=== PATIENT | male | born 1940 | race Caucasian/White ===

== ENCOUNTER 2017-08-01 11:26 | Outpatient (CLI) | payer MEDICARE ==
--- OUTSIDE RECORDS SUMMARY | 2017-08-01 11:28 | XMS | Clinical Summary ---
:1940 Author Organization [facility] Address [address] [place] [address] Phone Care Team Providers Name Role Phone , Primary Care Provider Unavailable Allergies Not on File Current Medications Not on file Active Problems Not on file Social History Tobacco Use Types Packs/Day Years Used Date Never Assessed Sex Assigned at Date Recorded Not on file Last Filed Vital Signs Not on file Plan of Treatment Not on file Results Not on filefrom Last 3 Months
[2017-08-01 12:23] LABS: #Eosinphils 0.1 thou/uL (0.0-0.7); #Lymphocytes 1.5 thou/uL (1.20-3.40); #Monocytes 0.6 thou/uL (0.11-0.59); #Neutrophils 4.9 thou/uL (1.40-6.50); %Basophils 0.6 % (0.0-1.0); %Lymphocytes 21.4 % (21.0-51.0); %Monocytes 8.5 % (0.0-10.0); Hematocrit 45.5 % (42.0-52.0); Mean Platelet Volume 8.2 fL (7.4-10.4); Red Blood Cell (RBC) Count 4.97 mill/uL (4.70-6.10); White Blood Cell (WBC) Count 7.1 thou/uL (4.8-10.8)
[2017-08-01 12:46] LABS: Anion Gap 13 mmol/L (10-20); BUN (Urea Nitrogen) 18 mg/dL (8.4-25.7); Calc. Creatinine Clearance 0 mL/min (70-130); Calcium 9.4 mg/dL (7.8-10.44); Carbon Dioxide 26 mmol/L (23-31); Chloride 105 mmol/L (98-107); Estimated GFR-MDRD 88
== END 2017-08-01 11:27 | disposition home or self-care (01) ==
LOC: LABBT 11:26
PROVIDERS: ATTEND Surgery
DX: Z01.812 Encounter for preprocedural laboratory examination (principal); K40.90 Unilateral inguinal hernia, without obstruction or gangrene, not specified as recurrent
CPT/HCPCS: 80048; 85025

== ENCOUNTER 2017-08-04 09:33 | Day surgery (SDC) | payer MEDICARE ==
[2017-08-01 11:44] VITALS: BMI 27.8
--- OUTSIDE RECORDS SUMMARY | 2017-08-04 09:36 | XMS | Clinical Summary ---
:1940 Author Organization [facility] Address [address] [place] [address] Phone Care Team Providers Name Role Phone [...]
[2017-08-04] MEDS ORDERED: Bupivacaine/Epinephrine 0.5% 10 ML VIAL ONE (11:12)
[2017-08-04] MEDS ORDERED: Bupivacaine PF 0.5% 30 ML VIAL ONE (11:12)
[2017-08-04] MEDS ORDERED: Midazolam HCl 2 mg/2 ml Vial ONE (11:20)
[2017-08-04] MEDS ORDERED: Fentanyl 100 MCG/2 ML VIAL ONE (11:20)
[2017-08-04] MEDS ORDERED: Lidocaine 2% Jelly 5 ML TUBE ONE (11:43)
[2017-08-04] MEDS ORDERED: Propofol 200 MG/20 ML VIAL ONE (11:52)
--- NOTE | 2017-08-04 15:47 | OP ---
DATE OF PROCEDURE: 08/04/2017 PREOPERATIVE DIAGNOSIS: Left inguinal hernia. POSTOPERATIVE DIAGNOSIS: Left inguinal hernia. PROCEDURES: Left inguinal hernia repair with mesh, PHS extended. SURGEON: Luis A Kelly M.D. ANESTHESIA: General. ESTIMATED BLOOD LOSS: Minimal. COMPLICATIONS: None. SPECIMEN: None. FINDINGS: Left inguinal hernia. TECHNIQUE: The patient was taken to the operating room and placed supine on the table. After gener al anesthetic was obtained, bilateral abdomen and groins were shaved, prepped and draped in a steril e fashion. Oblique incision made above the pubic tubercle in the left lower quadrant. Cautery diss ected down through Suhas's to expose the external oblique. External oblique fibers were opened patrica ng their course to the external ring. Contents of the inguinal canal were dissected away from the b ackside of the external oblique. Ilioinguinal nerve was found segmentally high removed to prevent p ostop pain. Cord structures were mobilized on the pubic tubercle using a [place] drain. Dissection superior medially on the cord showed there to be a small cord lipoma, but no indirect hernia sac. Cord lipoma was removed high. the transversalis fascia was entered over the direct defect in the fl oor of the inguinal canal, and then bluntly dissected using a wet unraveled Ray-Brenda. PHS extended b rought into the sterile field. The underlay was placed in the preperitoneal space and its fibers la id out flat against the posterior abdominal wall. The overlay was laid in the floor of the inguinal canal. The overlay is cut laterally to incorporate the internal ring. The overlay is sewn distall y to the pubic tubercle, medially to the transversalis arch, laterally to the shelving edge of ingui nal ligament. The two ends of cut mesh were reapproximated at the shelving edge of inguinal ligamen t to reform the internal ring. The extra mesh was tucked back under the external oblique proximally . The wound was irrigated. Local anesthetic was applied. Tunneled catheter for postop pain thread ed above the incision and left on top of the mesh. The wound was irrigated. No ongoing bleeding. 3-0 Vicryl was used to close the external oblique and Suhas's. Skin incision running 4-0 Monocryl and Dermabond. The patient went to recovery in stable condition. All instrument counts, needle cou nts, and lap counts were correct.
== END 2017-08-04 13:30 | disposition home or self-care (01) ==
LOC: SDC 09:33
PROVIDERS: ATTEND Surgery
PROC: 0YU60JZ Supplement Left Inguinal Region with Synthetic Substitute, Open Approach (ICD-10-PCS; principal; 2017-08-04)
DX: K40.90 Unilateral inguinal hernia, without obstruction or gangrene, not specified as recurrent (principal); D17.6 Benign lipomatous neoplasm of spermatic cord; I25.10 Atherosclerotic heart disease of native coronary artery without angina pectoris; E78.5 Hyperlipidemia, unspecified; K21.9 Gastro-esophageal reflux disease without esophagitis; J44.9 Chronic obstructive pulmonary disease, unspecified; G47.00 Insomnia, unspecified; N40.0 Benign prostatic hyperplasia without lower urinary tract symptoms; F17.200 Nicotine dependence, unspecified, uncomplicated; Z88.7 Allergy status to serum and vaccine; Z90.49 Acquired absence of other specified parts of digestive tract; Z98.890 Other specified postprocedural states; Z82.49 Family history of ischemic heart disease and other diseases of the circulatory system
CPT/HCPCS: 49505; A4306; C1781; J2250; J2704; J3010; J3490; S0020

== ENCOUNTER 2017-12-11 12:16 | Outpatient (CLI) | payer MEDICARE ==
--- NOTE | 2017-12-11 12:44 | RAD ---
PA AND LATERAL CHEST: History: Dyspnea. Comparison: 12-11-16 FINDINGS: Heart size within normal limits. There are arthrosclerotic changes of the aorta. Chronic apical pleur al and parenchymal changes are seen. No acute process. IMPRESSION: Stable chest. POS: [facility]
== END 2017-12-11 12:17 | disposition home or self-care (01) ==
LOC: RAD 12:16
PROVIDERS: ATTEND Internal Medicine Critical Care Medicine
DX: R06.00 Dyspnea, unspecified (principal)
CPT/HCPCS: 71046

== ENCOUNTER 2018-11-23 18:12 | Emergency (ER) | payer MEDICARE ==
[2018-11-23 18:40] LABS: Clarity Cloudy (Clear)
[2018-11-23 18:47] LABS: Bacteria/HPF 3+ HPF (None Seen); RBC/HPF 0-3 HPF (0-3); Squamous Epithelial 0-3 HPF (0-3); WBC/HPF 21-50 HPF (0-3)
== END 2018-11-23 19:15 | disposition home or self-care (01) ==
LOC: SCSER 18:12
DX: N30.90 Cystitis, unspecified without hematuria (principal); F17.210 Nicotine dependence, cigarettes, uncomplicated; I49.9 Cardiac arrhythmia, unspecified; I10 Essential (primary) hypertension
CPT/HCPCS: 81003; 81015; 87077; 87086; 87186; 99283

== ENCOUNTER 2020-05-02 20:30 | Observation (INO) | payer MEDICARE ==
[2020-05-02] MEDS ORDERED: Morphine 4 MG/ML VIAL ONE ×2 (21:31→22:31)
[2020-05-02] MEDS ORDERED: Ketorolac Tromethamine 30 MG/ML VIAL ONE (21:31)
--- NOTE | 2020-05-02 22:26 | CT ---
CT pelvis with contrast History: Hip pain Comparison: Radiograph same day Findings: Intrapelvic soft tissues are relatively unremarkable aside from small bilateral indirect in guinal hernias with evidence of prior left inguinal hernia repair. The obturator rings are intact. Sacrum is intact. High-grade degenerative disc space disease of L5/S1. Femoral heads and necks are intact. No intertrochanteric fracture. No evidence for fascial dehiscence. Impression: No acute displaced pelvic fracture.
[2020-05-02] MEDS ORDERED: Gabapentin 300 MG CAP PO SCH (22:45)
[2020-05-03 00:44] VITALS: BMI 25.9
[2020-05-03] MEDS ORDERED: Ondansetron PF 4 MG/2 ML Vial IVP PRN (01:37)
[2020-05-03] MEDS ORDERED: Acetaminophen 325 MG TAB PO PRN (01:37)
[2020-05-03] MEDS ORDERED: HYDROcodone/Acetaminophen 5/325 mg Tablet PO PRN (01:37)
[2020-05-03] MEDS ORDERED: Ondansetron ODT 4 MG TAB PO PRN (01:37)
[2020-05-03] MEDS ORDERED: Senokot S 8.6-50 MG TAB PO PRN (01:37)
[2020-05-03] MEDS ORDERED: Cyclobenzaprine 10 MG TAB PO PRN (01:41)
[2020-05-03] MEDS ORDERED: Cyclobenzaprine 10 MG TAB PO SCH (02:00)
[2020-05-03] MEDS: Morphine 4 MG/ML VIAL SLOW IVP PRN ×4 (02:08→17:52)
[2020-05-03] MEDS ORDERED: predniSONE 20 MG TAB PO SCH (08:00)
[2020-05-03] MEDS ORDERED: Lorazepam 1 MG TAB PO PRN (08:16)
[2020-05-03] MEDS: Gabapentin 300 MG CAP PO SCH ×3 (08:36→20:09)
[2020-05-03] MEDS ORDERED: Famotidine 20 MG TAB PO SCH (09:00)
[2020-05-03] MEDS ORDERED: Famotidine/PF 20 mg/2ml Vial SLOW IVP SCH (09:00)
--- NOTE | 2020-05-03 13:16 | MRI ---
MRI LUMBAR SPINE WITHOUT CONTRAST: Date: 05/03/2020 INDICATION: Low back pain with radiation down the leg, hip, and groin. COMPARISON: None. FINDINGS: There is straightening of the normal lumbar lordosis. No acute fracture is evident. Conus is seen to terminate at approximately L1-2. Visualized retroperitoneum reveals no definite acute abnormality. At L5-S1, there is a broad based disc osteophyte complex with loss of disc space height inducing mild neural foraminal encroachment, but no definite compression. At L4-5, there is a broad based bulge with superimposed left paracentral and left foraminal disc prot rusion. There is mild central canal narrowing. There is moderate encroachment along the left lateral recess. The protrusion and the facet hypertrophy at this level induce moderate left-sided neural fora aiden narrowing. The broad based bulge on the right induces mild neural foraminal narrowing. At L3-4, there is no appreciable central canal or neural foraminal narrowing. At L2-3, there is no appreciable central canal or neural foraminal narrowing. At L1-L2, there is no appreciable central canal or neural foraminal narrowing. At T12-L1, there is no appreciable central canal or neural foraminal narrowing. IMPRESSION: 1. Moderate spondylosis of the lumbar spine. 2. Left paracentral and left foraminal disc protrusion at L4-5 induces moderate left lateral recess narrowing without definite impingement of traversing left L5 nerve root. The protrusion does induce m oderate left-sided neural foraminal narrowing at L4-5. 3. Mild right L4-5 and mild bilateral neural foraminal narrowing at L5-S1. POS: [facility]
[2020-05-03] MEDS: HYDROcodone/Acetaminophen 5/325 mg Tablet PO PRN ×2 (15:00→20:09)
[2020-05-03] MEDS: Cyclobenzaprine 10 MG TAB PO SCH ×2 (15:00→20:08)
[2020-05-03] MEDS: Dexamethasone 4 MG TAB PO SCH (17:50)
[2020-05-03] MEDS: Fish Oil 1,000 MG CAP PO SCH (20:08)
[2020-05-03] MEDS ORDERED: traMADol HCl 50 MG TAB PO PRN (20:32)
[2020-05-03] MEDS ORDERED: Lisinopril 2.5 MG TAB PO SCH (21:00)
[2020-05-03] MEDS ORDERED: Atorvastatin Calcium 20 MG TAB PO SCH (21:00)
[2020-05-03] MEDS: Senokot S 8.6-50 MG TAB PO SCH (21:04)
[2020-05-03] MEDS: Acetaminophen 325 MG TAB PO SCH (21:05)
[2020-05-03] MEDS: traMADol HCl 50 MG TAB PO SCH (21:05)
[2020-05-04 04:12] LABS: #Lymphocytes 1.4 thou/uL (1.20-3.40); #Neutrophils 12.8 thou/uL (1.40-6.50); %Eosinophils 0.1 % (0.0-10.0); %Lymphocytes 9.1 % (21.0-51.0); %Monocytes 6.5 % (0.0-10.0); %Neutrophils 84.2 % (42.0-75.0); Hemoglobin 15.1 g/dL (14.0-18.0); Mean Corpuscular HGB CONC 33.9 g/dL (32.0-36.0); Mean Corpuscular Hemoglobin 30.4 pg (27.0-31.0); Mean Corpuscular Volume 89.8 fL (78.0-98.0); Mean Platelet Volume 8.6 fL (7.4-10.4); Platelet Count 124 thou/uL (130-400); RBC Distribution Width 12.5 % (11.5-14.5); Red Blood Cell (RBC) Count 4.96 mill/uL (4.70-6.10); White Blood Cell (WBC) Count 15.2 thou/uL (4.8-10.8)
[2020-05-04 04:16] LABS: PTT 30.3 sec (22.9-36.1); Prothrombin Time 13.5 sec (12.0-14.7)
[2020-05-04 04:37] LABS: Anion Gap 9 mmol/L (10-20); BUN (Urea Nitrogen) 16 mg/dL (8.4-25.7); Calc. Creatinine Clearance 86 mL/min (70-130); Calcium 8.8 mg/dL (7.8-10.44); Carbon Dioxide 27 mmol/L (23-31); Chloride 106 mmol/L (98-107); Estimated GFR-MDRD 87; Glucose 151 mg/dL (83-110); Potassium 3.8 mmol/L (3.5-5.1); Sodium 138 mmol/L (136-145)
[2020-05-04 08:33] VITALS: TEMP 98.3
[2020-05-04] MEDS ORDERED: Lidocaine 2% 20 ml MDV ONE (08:44)
[2020-05-04] MEDS ORDERED: Sodium Chloride 0.9% (PF) 10 ML VIAL ONE (08:44)
[2020-05-04] MEDS ORDERED: Iopamidol-M 300 61% 15 ML VIAL ONE (08:44)
[2020-05-04] MEDS ORDERED: Bupivacaine 0.25% 10 ML VIAL ONE (08:44)
[2020-05-04] MEDS ORDERED: Polyethylene Glycol 3350 17 GM Packet PO SCH (09:00)
[2020-05-04] MEDS ORDERED: Aspirin 81 mg Enteric Coated Tablet PO SCH (09:00)
[2020-05-04] MEDS: Fish Oil 1,000 MG CAP PO SCH (09:25)
[2020-05-04] MEDS: Senokot S 8.6-50 MG TAB PO SCH (09:26)
[2020-05-04] MEDS: Cyclobenzaprine 10 MG TAB PO SCH ×2 (09:27→15:20)
[2020-05-04] MEDS: traMADol HCl 50 MG TAB PO SCH (09:27)
[2020-05-04] MEDS: Acetaminophen 325 MG TAB PO SCH ×2 (09:27→15:20)
[2020-05-04] MEDS: Dexamethasone 4 MG TAB PO SCH (09:27)
[2020-05-04] MEDS: Gabapentin 300 MG CAP PO SCH ×2 (09:27→15:20)
[2020-05-04 10:36] VITALS: BP 145/67
--- NOTE | 2020-05-04 17:06 | CON ---
DATE OF CONSULTATION: REASON FOR CONSULTATION: Back and left thigh pain. HISTORY: A 80-year-old gentleman, who for the past 4 to 5 days has had severe increase in lower back pain that is radiating down into the left and lateral thigh and posterior leg. He has sought care from multiple providers and eventually ended up in the emergency room on the night of May 02. He was worked up with a pelvis CT and a lumbar spine MRI and was admitted for pain control and we were consulted. MRI scan reveals a left-sided disk herniation at the L4-L5 level encroaching upon the lateral recess and likely the exiting L4 nerve. This is concordant with his current symptom complex and this is his likely pain generator. He gets some relief with lying flat. Sitting upright and walking and Valsalva maneuvers all increase the pain. Pain level 8/10. He has been taking hydrocodone, cyclobenzaprine, and had some oral steroids with minimal benefit. PAST MEDICAL HISTORY: Significant for prostate hypertrophy, hypertension, cardiac history. PRIOR SURGICAL HISTORY: Includes hernia repair, prostate biopsy. SOCIAL HISTORY: No alcohol or drug abuse issues. Independent living, cared for by his daughter. ALLERGIES: HORSE SERUM. CURRENT MEDICATIONS: Include; 1. Hydrocodone. 2. Oral prednisone. REVIEW OF SYSTEMS: Negative with exception of HPI. PHYSICAL EXAMINATION: GENERAL: The patient is alert, oriented, pleasant, awake and conversive. He is lying flat in a bed, but has no problems sitting up. He just has pain after he sits up for a while. HEENT. Head is normocephalic. No nuchal rigidity. PERRL/EOMI. RESPIRATORY: Respiratory effort, chest are normal, clear. CARDIOVASCULAR: Unremarkable. ABDOMEN: Soft, nontender, nondistended. BACK: Reveals no rash, extension discomfort, straight leg raise test on the left side is positive. Deep tendon reflex 1+ bilateral. There is subjective sensory loss in the lateral and anterior lateral thigh on the left side, but no hyperesthesia or allodynia. IMPRESSION: L4-L5 disk protrusion, left side, concordant with the patient's pain. Proceed with an interlaminar MARYANN today. Follow up in a few weeks and consider an L4 and L5 transforaminal. If symptoms persist despite interventional care, Neurosurgical consultation may be warranted. Job ID: [id number]
--- NOTE | 2020-05-04 17:47 | DIS ---
DATE OF ADMISSION: 05/03/2020 DATE OF DISCHARGE: 05/04/2020 DISCHARGE DISPOSITION: Home. FOLLOWUP: 1. Follow up with Dr. Franklin Lewis in 1 week. 2. Follow up with Pain Management as outpatient. 3. Home health care with guardian has been arranged. The patient was seen and examined on the day of discharge. Denies any new complaints. Symptomatically feels much better. Back pain is improving. DISCHARGE MEDICATIONS: The patient will continue Flexeril along with gabapentin. Hydrocodone prescription has been sent by Dr. Lewis. All other home medications were left unchanged. BRIEF HOSPITAL COURSE: The patient is a 80-year-old male, who presented to the emergency room with intractable low back pain radiating down into his left lower extremity. He was monitored on the medical floor with above diagnosis. His MRI of the lumbar spine was consistent with left foraminal disk protrusion at the L4-L5 causing moderate left lateral recess narrowing. The patient was evaluated by Dr. Mijaers, Pain Management. He underwent interlaminar MARYANN today by Dr. Mijares. His pain has significantly improved. He has been cleared by consultants for discharge. FINAL DIAGNOSES: 1. Intractable low back pain secondary to L4-L5 disk protrusion on the left. 2. 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 3. Hypertension. 4. Hyperlipidemia. 5. Benign prostatic hypertrophy. 6. Chronic kidney disease stage 2. 7. Chronic thrombocytopenia. The patient understands the above plan of care. Job ID: [id number]
--- NOTE | 2020-05-04 18:21 | OP ---
DATE OF PROCEDURE: 05/04/2020 PREOPERATIVE DIAGNOSIS: Disk protrusion at L4-L5 with left L4 and L5 radiculitis. POSTOPERATIVE DIAGNOSIS: Disk protrusion at L4-L5 with left L4 and L5 radiculitis. PROCEDURES PERFORMED: Left L5 interlaminar epidural steroid injection with epidurogram and fluoroscopic guidance. ANESTHESIA: Local only. SUMMARY: Risks and benefits were discussed. Informed consent was obtained. He was taken to the procedure suite in the pain clinic, prepped and draped in standard fashion. DuraPrep prep and let dry, 1% lidocaine, left L5, loss of resistance, 20-gauge Touhy, one pass. No paresthesia, CSF, or heme. Marcaine 0.0625% 3 mL with 80 mg of Depo-Medrol was injected. No complications. Prior to injection of the steroid solution, Isovue-200 was used for epidurogram, documenting L3 through L5 spread, left side. No complications. Job ID: [id number]
== END 2020-05-04 15:30 | disposition home health service (06) ==
LOC: ERS 20:30 → ONC 05-03 00:16
PROVIDERS: ADMIT Internal Medicine; ATTEND Internal Medicine
PROC: 3E0R33Z Introduction of Anti-inflammatory into Spinal Canal, Percutaneous Approach (ICD-10-PCS; principal; 2020-05-02)
PROC: B01BZZZ Fluoroscopy of Spinal Cord (ICD-10-PCS; 2020-05-02)
DX: M51.16 Intervertebral disc disorders with radiculopathy, lumbar region (principal); M47.26 Other spondylosis with radiculopathy, lumbar region; I12.9 Hypertensive chronic kidney disease with stage 1 through stage 4 chronic kidney disease, or unspecified chronic kidney disease; N18.2 Chronic kidney disease, stage 2 (mild); N40.0 Benign prostatic hyperplasia without lower urinary tract symptoms; E78.5 Hyperlipidemia, unspecified; F17.210 Nicotine dependence, cigarettes, uncomplicated; Z88.8 Allergy status to other drugs, medicaments and biological substances
CPT/HCPCS: 62323; 72148; 72192; 80048; 85025; 85610; 85730; 96374; 96375; 96376 ×2; 97110; 97116; 97139 ×3; 99284; G0378 ×3; 36415; J1040; J1885; J2270; J7512; J8540; Q9967; S0020

== ENCOUNTER → 2020-05-03 | Outpatient (CLI) | payer MEDICARE ==
--- NOTE | 2020-05-02 13:51 | RAD ---
LEFT HIP: 05/02/20 Two views. HISTORY: Hip pain and arthritis. Femoral head contour is normal. Minimal degenerative change. No fracture. No acute osseous abnormalit y. IMPRESSION: Unremarkable left hip. POS: [facility]
[~2020-05-03] MED LIST: Acetaminophen 325 MG TAB PO PRN; Cyclobenzaprine 10 MG TAB PO SCH; Famotidine 20 MG TAB PO SCH; Famotidine/PF 20 mg/2ml Vial SLOW IVP SCH; Gabapentin 300 MG CAP PO SCH; Ketorolac Tromethamine 30 MG/ML VIAL IVP SCH; Morphine 2 MG/ML SYRINGE SLOW IVP PRN; Ondansetron ODT 4 MG TAB PO PRN; Ondansetron PF 4 MG/2 ML Vial IVP PRN; Senokot S 8.6-50 MG TAB PO PRN
--- NOTE | 2020-05-03 01:11 | HP ---
PRIMARY CARE PHYSICIAN: Dr. Franklin Lewis. CHIEF COMPLAINT: Left hip and back pain. HISTORY OF PRESENT ILLNESS: The patient is a 80-year-old male with a past medical history of hypertension, hyperlipidemia, and BPH who presents to the ER for the above complaint. The patient reports the acute onset of left hip and back pain this morning when waking up. He describes the pain as shooting and stabbing, radiating from the left hip to the left groin and testicle down to the left knee. Scores it as a 9/10 on the pain scale. It is exacerbated by walking, flexing, and sitting , is relieved by nothing. The patient called his PCP this a.m. who ordered some basic labs and performed an x-ray of the left hip and started the patient on Tylenol No. 3, high-dose ibuprofen, high-dose prednisone, and then a muscle relaxer. The pain was unresolved at home, so the patient's daughter took him to the ER. In the ER, the patient's blood pressure was elevated with a regular pulse, regular respirations, and regular oxygen saturation. He was afebrile. 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 No focal deficits. After 4 to 5 days, the pain resolved. He had no issues until this morning when he developed acute, severe left hip and back pain. The patient denies any fever or chills. The patient denies any focal weakness or urinary retention/incontinence. He is not on blood thinners. He denies any history of IV drug use. The patient has no surgical history on his back. He denies any dysuria, frequency, or hematuria. He is sexually active with one partner, has no concerns for any STIs. He denies any abdominal pain, nausea, vomiting, or diarrhea. He has no other complaints at this time. CT of the pelvis was negative for any acute fracture and did show some chronic osteoarthritic changes of the hip. UA was performed at the PCP's office and was unremarkable. CMP and CBC were unremarkable. The patient was given gabapentin, morphine, and ketorolac and was admitted to the hospital floor. PAST MEDICAL HISTORY: 1. Hypertension. 2. Hyperlipidemia. 3. BPH. PAST SURGICAL HISTORY: 1. Hernia repair. 2. Prostate biopsy. SOCIAL HISTORY: The patient lives with his family at home. He has a half pack per day smoking history. Denies any alcohol or illicit drug use. FAMILY HISTORY: Noncontributory to this case. ALLERGIES: NO KNOWN DRUG ALLERGIES. HOME MEDICATIONS: 1. Tylenol No. 3. 2. Prednisone. 3. Tizanidine. REVIEW OF SYSTEMS: All other review of systems are negative unless otherwise stated in HPI. PHYSICAL EXAMINATION: VITAL SIGNS: Temperature 97.9, blood pressure 137/58, pulse 62, respirations 16 , and 95% on room air. Pain scale 9/10. CONSTITUTIONAL: The patient is alert and oriented to person, place, and time. He is uncomfortable. He is nontoxic appearing. HEENT: Head is atraumatic and normocephalic. Eyes, PERRLA. Extraocular muscles intact. ENT: Nares patent bilaterally. Oropharynx clear. Uvula midline. Moist mucous membranes. No oral lesions. NECK: Soft, supple. Trachea midline. No cervical spinal tenderness. Full range of motion. RESPIRATORY: Respirations even and unlabored. No rhonchi, wheezes, or rales. CARDIOVASCULAR: S1, S2 appreciated. No murmurs, rubs, or gallops. ABDOMEN: Soft, nontender, nondistended. Active bowel sounds. No rebound. No guarding. No rigidity. Negative Rovsing sign. Negative Noble sign. No abdominal bruit auscultated. MALE GENITOURINARY: Left testicle is mildly painful to palpation. No swelling. No erythema. No open lesions. BACK: The patient is mildly tender on the left paraspinous muscles, left SI joint, the left buttock, and left hamstring, reproducible with palpation. No central spinous tenderness. No CVA tenderness. EXTREMITIES: Upper extremities, full range of motion. Strength normal. Sensation intact. Palpable radial pulses. Lower extremities, left lower extremity has decreased range of motion. Sensation intact. Strength normal. Palpable pedal pulses. No swelling. No open lesions. Right lower extremity is normal, full range of motion and sensation intact. Normal strength. Palpable pedal pulses. NEUROLOGIC: Cranial nerves 2 through 12 are intact. No focal deficits. High sensitivity neuro exam of the lumbar spine is negative. PSYCHIATRIC: Alert, oriented to person, place, and time. Normal affect. No suicidal or homicidal ideation. LABS AND DIAGNOSTICS: CT of the pelvis was negative for any acute fractures. Sodium 141, potassium 4.7, chloride 106, CO2 of 26, BUN 10, creatinine 0.96, glucose 116, total bilirubin 0.7, AST 13, ALT 10, ALP is 127. WBC 7.2, hemoglobin 16.6, hematocrit 48, platelets 129. Urine is unremarkable. TSH is 1.7. PSA is 4.3. Prostate specific antigen is 6.33. IMPRESSION AND PLAN: 1. Intractable hip and back pain. We will admit the patient to the medical floor observation status. Expected length of stay, less than 2 midnights. Patient presents for acute onset of left hip and back pain that radiates down the left posterior leg to the knee. X-ray was negative for any acute fracture. Did show some osteoarthritis. CT of the pelvis was negative for any acute fracture. The patient was scheduled for MRI next week, but his pain was unrelieved, on multiple pain medications, so his daughter took him to the ER. Vital signs are stable. High-sensitivity neuro exam was negative for the lumbar spine. UA was unremarkable. CBC was unremarkable. We will continue pain medications with IV opioids p.r.n. , scheduled ketorolac and gabapentin. We will schedule an MRI. The patient is a fall risk, on fall precautions. We will recheck labs in the a.m. 2. Hypertension. The patient is not taking any medications for high blood pressure. Currently, his blood pressure is controlled. We will continue to monitor BP. 3. BPH. PSA 4.3, prostate-specific antigen is 6.33 ordered by his PCP this a.m. The patient denies any urinary symptoms. Denies any dysuria, frequency, or urgency. The patient denies any concern for any STIs. We will continue to monitor. 4. SCDs for DVT prophylaxis. 5. Pepcid for GI prophylaxis. 6. The patient is a full code. TABITHA is his daughter, Windy Pitts, number [phone]. 7. Discussed the case with Dr. Zheng. Job ID: [id number] [facility]
== END ==
LOC: SCSRAD 05-02 12:05
PROVIDERS: ATTEND Family Medicine
DX: M16.12 Unilateral primary osteoarthritis, left hip (principal)

== ENCOUNTER 2025-07-20 08:37 | Outpatient (CLI) | payer MEDICARE ==
[2025-07-20 10:21] LABS: Estimated GFR - POC 85.0
== END 2025-07-20 08:38 | disposition home or self-care (01) ==
LOC: SCSMRI 08:37
PROVIDERS: ATTEND Urology
DX: C61 Malignant neoplasm of prostate (principal)
CPT/HCPCS: 36415; 72197; 82565